=== PATIENT | female | born 1965 | race Caucasian/White ===

== ENCOUNTER 2016-04-25 13:03 | Outpatient (CLI) | payer OTHER ==
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
--- NOTE | 2016-04-25 14:11 | DIAGNOSTIC IMAGING REPORT ---
PROCEDURE: XR RIBS UNILAT W/PA CHEST-LT INDICATION: Left rib and chest pain. TECHNIQUE: Two views of the left ribs with single PA view chest. COMPARISON: None. FINDINGS: LEFT RIBS: Small metal marker was placed over the left lower ribs (region of clinical concern). Osseous structures are normal. No evidence of rib fracture. CHEST: Lungs are clear. Heart and mediastinum are normal. Thorax is normal. IMPRESSION: 1. Normal left ribs. 2. Normal chest.
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
--- NOTE | 2016-04-25 14:14 | DIAGNOSTIC IMAGING REPORT ---
PROCEDURE: XR LUMBAR SPINE 2 OR 3 VIEWS INDICATION: Back and lower extremity pain. TECHNIQUE: Three views. COMPARISON: None. FINDINGS: There are mild degenerative changes of the lower lumbar facet joints. There is a mild generalized levoscoliosis of the thoracolumbar spine (10 degrees). Osseous structures and disc spaces are otherwise normal No evidence of an acute process or fracture. IMPRESSION: 1. Mild degenerative changes of the lower lumbar facet joints. 2. Mild levoscoliosis of the thoracolumbar spine (10 degrees). 3. Otherwise negative lumbar spine.
== END 2016-04-25 23:00 ==
LOC: XR SRH 13:03
DX: M47.812 Spondylosis without myelopathy or radiculopathy, cervical region (principal); M41.85 Other forms of scoliosis, thoracolumbar region